=== PATIENT | female | born 1955 | race Caucasian/White ===

== ENCOUNTER 2016-10-12 19:17 | Emergency (ER) | payer MEDICAID, OTHER ==
[2016-10-12] MEDS ORDERED: ONDANSETRON 4 MG/2 ML VIAL ONE (19:53)
[2016-10-12] MEDS ORDERED: HYDROmorphONE/DILAUDID 1 MG/ML SYR ONE (19:53)
--- NOTE | 2016-10-12 19:54 | EDPHY ---
H & P Stated Complaint: fall HPI/ROS: Chief complaint: Left shoulder injury History of present illness: This is a 60-year-old female who presents to the emergency department for evaluation of a left shoulder injury. Patient reports earlier this evening she was walking down some steps of her house when she slipped on ice landing directly onto her shoulder. Since then she has had pain in the shoulder. She cannot move it secondary to pain. She does state she subsequently struck her head against the ground in the fall. However, she did not lose consciousness. There is no report of headache. She states other than the shoulder pain she feels fine. No report of pain in the head, neck, back, chest, abdomen, pelvis or extremities. No report of open wounds. No report of paresthesias or abnormal coolness in the extremities. - Personal History Current Tetanus/Diphtheria Vaccine: Yes Current Tetanus Diphtheria and Acellular Pertussis (TDAP): Yes Tetanus Vaccine Date: 2009 - Medical/Surgical History Hx Asthma: Yes Hx Chronic Respiratory Disease: No Hx Diabetes: No Hx Cardiac Disease: No Hx Renal Disease: No Hx Cirrhosis: No Hx Alcoholism: No Hx HIV/AIDS: No Hx Splenectomy or Spleen Trauma: No Other PMH: tubial ligation, shoulder surgery, HTN - Social History Smoking Status: Current some day smoker - Physical Exam Exam: General Appearance: Alert, nontoxic Eyes: PERRLA Respiratory: Lungs clear to auscultation bilaterally Cardiac: Regular rate and rhythm. Gastrointestinal: Soft, nondistended, nontender. Neurological: Alert and oriented x4. Strength and sensation intact and symmetrical. Skin: No open wounds noted. Musculoskeletal: The left shoulder is tender to palpation. She does not want to move it secondary to pain. She can move the left elbow, wrist and digits. Rest left upper extremities nontender. Head is normocephalic, atraumatic. The spine is nontender to palpation along its entire length. There is no crepitus, bony deformity or step-off on the spine. The rest of the extremities are unremarkable. Constitutional: Initial Vital Signs Temperature (C) 36.7 C 10/12/16 19:38 Heart Rate 78 10/12/16 19:38 Respiratory Rate 16 10/12/16 19:38 Blood Pressure 98/60 L 10/12/16 19:38 O2 Sat (%) 94 10/12/16 19:38 O2 Delivery Mode Room Air Allergies/Adverse Reactions: Penicillins Allergy (Verified 10/12/16 19:37) Home Medications: Medication Instructions Recorded GABAPENTIN 10/24/13 Effexor 05/04/14 Albuterol 10/12/16 oxyCODONE/APAP 5/325 [Percocet 1 tab PO Q6H #10 tab 10/12/16 5/325 (*)] Medical Decision Making ED Course/Re-evaluation: Patient discussed with my secondary supervising physician Dr. Edu Rojas. Patient presents to the emergency department for a left shoulder injury. Left arm is neurovascularly intact. By history and physical exam no evidence of trauma to other parts of the body. X-rays negative for acute findings. However she is in significant amount of pain, I have offered to evaluate with a CT scan to further look for fracture, she has declined. She is placed in a sling. Home care is discussed. She is referred to Orthopedics for continued evaluation and care. Return precautions are given. Differential Diagnosis: Included but not limited to contusion, sprain or strain, joint dislocation, bony fracture - Data Points Medications Given: Discontinued Medications Hydromorphone HCl (Dilaudid) 0.5 mg IVP EDNOW ONE Stop: 10/12/16 20:10 Last Admin: 10/12/16 20:11 Dose: 0.5 mg Ondansetron HCl (Zofran) 4 mg IVP EDNOW ONE Stop: 10/12/16 20:10 Last Admin: 10/12/16 20:11 Dose: 4 mg Oxycodone/Acetaminophen (Percocet 5/325mg Prepack#4) 1 btl TAKEHOME EDNOW ONE Stop: 10/12/16 20:44 Last Admin: 10/12/16 21:02 Dose: 1 btl Departure - Departure Disposition: Home, Routine, Self-Care Clinical Impression: Sprain of left shoulder Qualifiers: Encounter type: initial encounter Shoulder sprain type: unspecified sprain Qualified Code(s): S43.402A - Unspecified sprain of left shoulder joint, initial encounter Condition: Good Instructions: Oxycodone/Acetaminophen (By mouth), Shoulder Sprain (ED) Additional Instructions: Follow-up with orthopedics this week for recheck In regards to pain control see the following: Use ibuprofen 600 mg 3 times a day for the next 1-2 days for pain In addition You have been prescribed Percocet for pain. Percocet contains Tylenol, do not take extra Tylenol/acetaminophen/Apap with it. It is sedating. If symptoms worsen or new symptoms develop return to the emergency department for recheck Referrals: LINDA MONACO [Other] - As per Instructions Vineet Matos MD [Medical Doctor] - As per Instructions Prescriptions: oxyCODONE/APAP 5/325 [Percocet 5/325 (*)] 1 tab PO Q6H #10 tab
[2016-10-12] MEDS ORDERED: ONDANSETRON 4 MG/2 ML VIAL IVP ONE (20:09)
[2016-10-12] MEDS ORDERED: HYDROmorphONE/DILAUDID 1 MG/ML SYR IVP ONE (20:09)
[2016-10-12] MEDS ORDERED: OXYCODONE/APAP 5/325MG PREPACK#4 BTL TAKEHOME ONE (20:43)
[2016-10-12 21:04] VITALS: BP 152/78; PULSE 82; RESP 18; TEMP 97.9; O2SAT 95
== END 2016-10-12 21:11 | disposition home or self-care (01) ==
DX: S43.402A Unspecified sprain of left shoulder joint, initial encounter (principal); I10 Essential (primary) hypertension; J45.909 Unspecified asthma, uncomplicated; F17.200 Nicotine dependence, unspecified, uncomplicated; W00.1XXA Fall from stairs and steps due to ice and snow, initial encounter; Y92.410 Unspecified street and highway as the place of occurrence of the external cause; Y99.8 Other external cause status; Y93.01 Activity, walking, marching and hiking
CPT/HCPCS: 96374; A4565; J1170; J2405

== ENCOUNTER 2017-04-16 19:41 | Emergency (ER) | payer MEDICAID, OTHER ==
[2017-04-16 19:52] VITALS: TEMP 98.2
[2017-04-16] MEDS ORDERED: OXYCODONE/APAP 5/325 TAB PO ONE (19:56)
[2017-04-16] MEDS ORDERED: ONDANSETRON DISINTEGRATING 4 MG TAB PO ONE (19:56)
[2017-04-16] MEDS ORDERED: PROMETHAZINE HCL 25 MG/ML INJ IVP ONE (20:45)
--- NOTE | 2017-04-16 21:00 | EDPHY ---
H & P Smoking Status: Current some day smoker Time Seen by Provider: 04/16/17 20:57 HPI/ROS: HPI: Ms. Jackson is a 61 yrs, female who presents with Chief Complaint: Left knee pain Location: Left anterior knee Quality: Sharp constant pain Duration: Starting today Signs and Symptoms: No radiation, no weakness, positive swelling, no shortness of breath, no chest pain, no bruising, no bleeding Timing: Gradual onset and now constant Severity: 10 in 10 Context: Patient had left knee meniscus arthroscopy yesterday by Dr. Matos. She was instructed to start some knee exercises today. After completion of the exercise that she felt gradual onset of severe constant pain that was not relieved by Percocet. Modifying Factors: Not relieved by Percocet Comment: ROS: Eyes: No blurred vision Respiratory: No shortness of breath, no cough Cardiovascular: No chest pain Gastrointestinal: No nausea, no vomiting no diarrhea Genitourinary: No dysuria Extremities: No myalgias Neurologic: No weakness, no numbness Skin: No rashes Hematologic: No bruising, no bleeding MEDICAL/SURGICAL HISTORY: Hypertension, tubal ligation. (Neida Russ) Social History: . (Neida Russ) Physical Exam: CONSTITUTIONAL: Moderate distress adult white female, awake and alert, non- toxic HEENT: Atraumatic and normocephalic, PERRL, EOMI. Tympanic membranes clear. Oropharynx clear, no exudate and moist pink mucosa. Airway patent. No lymphadenopathy. No meningismus. Cardiovascular: Normal S1/S2, regular rate, regular rhythm, without murmur rub or gallop. PULMONARY/CHEST: Symmetrical and nontender. Clear to auscultation bilaterally Good air movement. No accessory muscle usage. ABDOMEN: Soft, nondistended, nontender, no rebound, no guarding, no peritoneal signs, no masses or organomegaly. No CVAT. EXTREMITIES: 2/2 pulses, no deformities, no clubbing, no cyanosis or edema. Left knee shows flexion 20 degree position; any movement into full extension or any more flexion causes severe pain. Dressings removed in show well- approximated with suture x2 portal holes; mild erythema and effusion. Mild calf tenderness. NEUROLOGICAL: no focal neuro deficits. GCS 15. SKIN: Warm and dry, no rash. Good capillary refill. (Neida Russ) Constitutional: Initial Vital Signs Temperature (C) 36.8 C 04/16/17 19:49 Heart Rate 69 04/16/17 19:49 Respiratory Rate 18 04/16/17 19:49 Blood Pressure 191/88 H 04/16/17 19:49 O2 Sat (%) 98 04/16/17 19:49 O2 Delivery Mode Room Air Allergies/Adverse Reactions: Penicillins Allergy (Severe, Verified 04/16/17 19:53) Other-Enter Comments Home Medications: Medication Instructions Recorded GABAPENTIN 10/24/13 Effexor 05/04/14 Albuterol 10/12/16 oxyCODONE/APAP 5/325 [Percocet 1 tab PO Q6H #10 tab 10/12/16 5/325 (*)] Medical Decision Making ED Course/Re-evaluation: X-rays refused by patient Patient given oral pain and antiemetic medications Reassessed 0.5 hours later and pain still not relieved. Given IV morphine 4 mg IV promethazine. Lower extremity ultrasound no DVT No signs of neurovascular compromise Reassessed patient prior to discharge and pain still 7/10. Given IV Valium for muscular spasm component as well as another dose of IV morphine Patient reports that she has greater than 30 tablets of Percocet left at home. Patient confirms that she does have crutches at home. (Neida Russ) I did not see this patient while she was in the emergency department. However her care was discussed with the PA while the patient was in the department. I agree with treatment plan and management (Chris Almaraz) Differential Diagnosis: Leg swelling including but not limited to hypoalbuminemia, congestive heart failure, cor pulmonale, chronic venous stasis and DVT. Knee injury while [] including but not limited to fracture, ACL injury, contusion, muscular strain, and meniscus injury. (Neida Russ) - Data Points Medications Given: Discontinued Medications Diazepam (Valium Injection) 5 mg IVP EDNOW ONE Stop: 04/16/17 22:13 Last Admin: 04/16/17 22:16 Dose: 5 mg Morphine Sulfate (Morphine) 4 mg IVP EDNOW ONE Stop: 04/16/17 20:46 Last Admin: 04/16/17 20:53 Dose: 4 mg Morphine Sulfate (Morphine) 4 mg IVP EDNOW ONE Stop: 08/19/17 22:15 Last Admin: 04/16/17 22:17 Dose: 4 mg Ondansetron HCl (Zofran Odt) 4 mg PO EDNOW ONE Stop: 04/16/17 19:57 Last Admin: 04/16/17 19:57 Dose: 4 mg Oxycodone/Acetaminophen (Percocet 5/325) 2 tab PO EDNOW ONE Stop: 04/16/17 19:57 Last Admin: 04/16/17 19:57 Dose: 2 tab Promethazine HCl (Phenergan) 12.5 mg IVP ONCE ONE Stop: 04/16/17 20:46 Last Admin: 04/16/17 20:54 Dose: 12.5 mg Departure - Departure Disposition: Home, Routine, Self-Care Clinical Impression: History of knee surgery, Strain of left knee Condition: Good Instructions: Knee Pain (ED) Additional Instructions: Abstain from performing lower leg exercises until follow-up with Orthopedics. Use crutches and remain nonweightbearing on left lower extremity. Patient may take Percocet 1-2 tabs as needed every 4-6 hours for moderate to severe pain. Call Dr. Matos's office on Tuesday for close follow-up appointment. Referrals: LINDA MONACO [Other] - As per Instructions Vineet Matos MD [Medical Doctor] - As per Instructions
[2017-04-16] MEDS ORDERED: DIAZEPAM 10 MG/2 ML SYR IVP ONE (22:12)
[2017-04-16 22:35] VITALS: BP 190/90; PULSE 76; RESP 16; O2SAT 94
== END 2017-04-16 22:35 | disposition home or self-care (01) ==
DX: S86.912A Strain of unspecified muscle(s) and tendon(s) at lower leg level, left leg, initial encounter (principal); I10 Essential (primary) hypertension; F17.200 Nicotine dependence, unspecified, uncomplicated; Z98.890 Other specified postprocedural states; X50.9XXA Other and unspecified overexertion or strenuous movements or postures, initial encounter; Y99.8 Other external cause status; Y93.89 Activity, other specified
CPT/HCPCS: 96374; J2550